=== PATIENT | male | born 1985 | race Caucasian/White ===

== ENCOUNTER 2021-08-09 21:27 | Emergency (ER) | payer SELFPAY ==
[~2021-08-09] VITALS: Ht 177.8 cm; Wt 87.5 kg
[~2021-08-09 21:27] MED LIST: Z.0.ATIVAN0.5 MG
[2021-08-09] MEDS ORDERED: TETANUS/DIPHTHERIA TOX ADULT 0.5 ML SYR ONE (21:53)
[2021-08-09] MEDS ORDERED: TETANUS/DIPHTHERIA TOX ADULT 0.5 ML SYR IM ONE (21:55)
[2021-08-09] MEDS ORDERED: HYDROCODONE/APAP 10MG-325MG TAB ONE (21:56)
[2021-08-09] MEDS ORDERED: CLEOCIN HCL150 MG PO (21:56)
[2021-08-09] MEDS ORDERED: HYDROCODONE/APAP 10MG-325MG TAB PO ONE (22:15)
== END 2021-08-09 22:07 | disposition home or self-care (01) ==
LOC: ER 21:53
DX: S61.411A Laceration without foreign body of right hand, initial encounter (principal); W26.0XXA Contact with knife, initial encounter; Z88.0 Allergy status to penicillin
CPT/HCPCS: 90714; 99282

== ENCOUNTER 2022-03-15 19:05 | Emergency (ER) | payer SELFPAY ==
[~2022-03-15] VITALS: Ht 177.8 cm; Wt 87.5 kg
[~2022-03-15 19:05] MED LIST changes: +CLEOCIN HCL150 MG PO
[2022-03-15] MEDS ORDERED: SODIUM CHLORIDE 0.9% IV SCH (19:45)
[2022-03-15] MEDS ORDERED: ASPIRIN 325 MG TAB PO ONE (19:45)
[2022-03-15 19:55] LABS: BASOPHILS # (AUTO) 0.1 (0.0-0.1); BASOPHILS % 1.7 % (0.0-1.0); EOSINOPHILS # (AUTO) 0.4 (0.0-0.4); EOSINOPHILS % 5.4 % (0.0-6.0); HEMATOCRIT 41.1 % (38.2-49.6); HEMOGLOBIN 13.7 g/dL (14.0-18.0); LYMPHOCYTES # (AUTO) 1.8 (1.0-3.2); LYMPHOCYTES % 27.8 % (18.0-39.1); MEAN CORPUSCULAR HEMOGLOBIN 26.6 pg (28-32); MEAN CORPUSCULAR HGB CONC 33.3 g/dL (31-35); MEAN CORPUSCULAR VOLUME 79.8 fL (81-99); MONOCYTES # (AUTO) 0.5 (0.2-0.8); MONOCYTES % 7.4 % (4.4-11.3); NEUTROPHILS # (AUTO) 3.7 (2.1-6.9); NEUTROPHILS % 57.4 % (38.7-80.0); PLATELET COUNT 252 x10e3/uL (140-360); RED BLOOD COUNT 5.15 x10e6/uL (4.3-5.7); RED CELL DISTRIBUTION WIDTH 12.9 % (11.7-14.4)
[2022-03-15] MEDS ORDERED: CEFTRIAXONE 1 GM VIAL IV SCH (20:00)
[2022-03-15 20:01] LABS: INR 0.96; PROTHROMBIN TIME 13.7 seconds (11.9-14.5)
[2022-03-15 20:02] LABS: PARTIAL THROMBOPLASTIN TIME 26.3 seconds (23.8-35.5)
[2022-03-15 20:08] LABS: ALBUMIN 3.7 g/dL (3.5-5.0); ALBUMIN/GLOBULIN RATIO 1.2 (0.8-2.0); ANION GAP 12.4 mmol/L (8-16); CALCIUM 8.6 mg/dL (8.4-10.2); CREATININE, SERUM 1.08 mg/dL (0.72-1.25); POTASSIUM 3.4 mmol/L (3.5-5.1)
[2022-03-15] MEDS ORDERED: SODIUM CHLORIDE 0.9% 250ML 250 ML ONE (20:34)
[2022-03-15 20:47] LABS: CLARITY,URINE SL CLOUDY (CLEAR); COLOR,URINE STRAW (YELLOW); KETONES,URINE NEGATIVE (NEGATIVE); LEUKOCYTE ESTERASE ,URINE NEGATIVE (NEGATIVE); NITRITE,URINE NEGATIVE (NEGATIVE); PROTEIN,URINE DIPSTICK NEGATIVE (NEGATIVE); URINE UROBILINOGEN 0.2 mg/dL (0.2 - 1)
[2022-03-15 20:56] LABS: AMORPHOUS SEDIMENT,URINE FEW (FEW); BACTERIA,URINE FEW /HPF
[2022-03-15] MEDS ORDERED: IOPAMIDOL 370 MG/ML 100 ML INFUS..BTL INJ ONE (21:07)
[2022-03-15] MEDS ORDERED: SODIUM CHLORIDE 0.9% 1000ML 1,000 ML IV ONE (21:15)
[2022-03-15] MEDS ORDERED: BENZONATATE100 MG PO (22:46)
[2022-03-15] MEDS ORDERED: IBUPROFEN800 MG PO (22:46)
[2022-03-15] MEDS ORDERED: PROAIR HFA INH8.5 GM INH (23:04)
[2022-03-15 23:16] VITALS: BP 156/100
[2022-03-16] MEDS ORDERED: AZITHROMYCIN 250 MG TAB PO SCH (09:00)
== END 2022-03-15 23:17 | disposition home or self-care (01) ==
LOC: ER 19:29
DX: R07.9 Chest pain, unspecified (principal); R00.0 Tachycardia, unspecified; J06.9 Acute upper respiratory infection, unspecified; R50.9 Fever, unspecified; Z20.822 Contact with and (suspected) exposure to COVID-19
CPT/HCPCS: 36415; 71045; 71260; 80053; 81001; 83605; 84484; 85025; 85610; 85730; 87040; 87086; 93005; 99284; J0456; J0696; J7030; J7050; Q9967; U0002

== ENCOUNTER 2025-04-13 20:10 | Emergency (ER) | payer SELFPAY ==
[~2025-04-13] VITALS: Ht 177.8 cm; Wt 119.3 kg
[~2025-04-13 20:10] MED LIST changes: +BENZONATATE100 MG PO; +IBUPROFEN800 MG PO; +PROAIR HFA INH8.5 GM INH
[2025-04-13] MEDS ORDERED: TETANUS/DIPHTHERIA TOX ADULT 0.5 ML SYR ONE (20:14)
[2025-04-13 20:18] VITALS: PULSE 118; RESP 17; TEMP 98.7; O2SAT 97
[2025-04-13] MEDS: TETANUS/DIPHTHERIA TOX ADULT 0.5 ML SYR IM ONE (20:23)
== END 2025-04-13 20:26 | disposition home or self-care (01) ==
LOC: ER 20:18
DX: S91.331A Puncture wound without foreign body, right foot, initial encounter (principal); W26.8XXA Contact with other sharp object(s), not elsewhere classified, initial encounter; Y93.01 Activity, walking, marching and hiking; Y92.89 Other specified places as the place of occurrence of the external cause; I10 Essential (primary) hypertension; M54.9 Dorsalgia, unspecified; G89.29 Other chronic pain; E66.01 Morbid (severe) obesity due to excess calories
CPT/HCPCS: 90471; 90714; 99283